=== PATIENT | male | born 1950 | race Caucasian/White ===

== ENCOUNTER 2018-11-07 11:39 | Day surgery (SDC) | payer OTHER, SELFPAY ==
[2018-11-02 09:26] VITALS: BMI 24.0
[2018-11-07] VITALS (7 sets, daily range): BP systolic 133–161; BP diastolic 66–85; PULSE 60–67; RESP 10–20; TEMP 36.2–37.2; O2SAT 97–100; BMI 24.0
[2018-11-07] MEDS: LACTATED RINGERS 1,000 ML 42 ML IV (12:43)
[2018-11-07] MEDS: CEFAZOLIN 2 GM/100 ML FROZ.PIGGY IV (14:01)
--- NOTE | 2018-11-07 14:01 | PM.HP.1 ---
History of Present Illness Date Patient Seen: 11/07/18 Time Patient Seen: 14:06 Chief complaint: [id number] Narrative: 68-year-old gentleman with a right inguinal hernia. He reports today to have it repaired. Since I last saw him, he is had a sleep study and he is now using a CPAP machine at night. He reports he is tolerating it very well. He is accompanied by his today. She will be caring for him after discharge. Patient History Medical History CKD (chronic kidney disease) stage 3, GFR 30-59 ml/min (Acute) Chronic systolic heart failure (Acute) HTN (hypertension) (Acute) Hearing impaired (Acute) Hydronephrosis (Acute) Hyperlipidemia (Acute) LBBB (left bundle branch block) (Acute) KHANH on CPAP (Acute) Pre-diabetes (Acute) Presence of combination internal cardiac defibrillator (ICD) and pacemaker (Acute 02/08/18) Pulmonary hypertension (Acute) Cardiomyopathy (Chronic) Cataract (Resolved) Surgical History Hx of arthroscopic knee surgery (Acute ~07/2000) S/P cystoscopy with ureteral stent placement (Acute) Status post cataract extraction and insertion of intraocular lens of left eye (Acute ~08/2015) Family & Social History Family History: Reviewed 11/07/18 by Suly Barragan MD Social History: household members spouse Tobacco & Substance use: Tobacco type cigarettes Smoking Status Current some day smoker alcohol intake current Meds Home Medications Medication Instructions Recorded Confirmed Type aspirin 81 mg tablet,delayed 81 mg PO DAILY 08/27/18 11/02/18 History release atorvastatin 40 mg tablet 40 mg PO DAILY 08/27/18 11/02/18 History carvedilol 6.25 mg tablet 6.25 mg PO BID tab 08/27/18 11/02/18 History lisinopril 5 mg tablet 5 mg PO DAILY 08/27/18 11/02/18 History spironolactone 25 mg tablet 25 mg PO DAILY 08/27/18 11/02/18 History Allergies Allergy/AdvReac Type Severity Reaction Status Date / Time No Known Drug Allergies Allergy Unverified 11/07/18 12:41 Review of Systems Review of Systems All systems reviewed & are unremarkable except as noted in HPI and below Exam Vital Signs (past 8 hours): - 11/07/18 12:25 Temperature 97.1 F L Pulse Rate 60 Respiratory Rate 15 Blood Pressure 145/85 H Pulse Oximetry 100 Oxygen Delivery Method Room Air Narrative Exam Narrative: Very pleasant 68-year-old gentleman in no obvious distress. HEENT: Normocephalic and atraumatic, pupils equal round reactive to light accommodation with anicteric sclera Lungs: Clear bilaterally Heart: Regular rate and rhythm without murmur rub or gallop Abdomen: Soft, nontender, active bowel sounds. He has a visible and palpable right inguinal hernia that is easily reducible. Spontaneously reduces when in the supine position. No other defects appreciated. Extremities: Warm and well perfused. Assessment & Plan Plan: Assessment/Plan Narrative: Pleasant and remarkably active 68-year-old gentleman with a large right inguinal hernia. We discussed the risks and benefits of repairing the patient expressed a desire to complete the procedure today.
--- NOTE | 2018-11-07 14:09 | P.HP_ITS ---
History of Present Illness Date Patient Seen: 11/07/18 Time Patient Seen: 14:06 Chief complaint: [id number] Narrative: 68-year-old gentleman with a right inguinal hernia. He reports today to have it repaired. Since I last saw him, he is had a sleep study and he is now using a CPAP machine at night. He reports he is tolerating it very well. He is accompanied by his today. She will be caring for him after discharge. Patient History Medical History CKD (chronic kidney disease) stage 3, GFR 30-59 ml/min (Acute) Chronic systolic heart failure (Acute) HTN (hypertension) (Acute) Hearing impaired (Acute) Hydronephrosis (Acute) Hyperlipidemia (Acute) LBBB (left bundle branch block) (Acute) KHANH on CPAP (Acute) Pre-diabetes (Acute) Presence of combination internal cardiac defibrillator (ICD) and pacemaker ( Acute 02/08/18) Pulmonary hypertension (Acute) Cardiomyopathy (Chronic) Cataract (Resolved) Surgical History Hx of arthroscopic knee surgery (Acute ~07/2000) S/P cystoscopy with ureteral stent placement (Acute) Status post cataract extraction and insertion of intraocular lens of left eye ( Acute ~08/2015) Family & Social History Family History: Reviewed 11/07/18 by Suly Barragan MD Social History: household members spouse Tobacco & Substance use: Tobacco type cigarettes Smoking Status Current some day smoker alcohol intake current Meds Home Medications Medication Instructions Recorded Confirmed Type aspirin 81 mg tablet,delayed 81 mg PO DAILY 08/27/18 11/02/18 History release atorvastatin 40 mg tablet 40 mg PO DAILY 08/27/18 11/02/18 History carvedilol 6.25 mg tablet 6.25 mg PO BID tab 08/27/18 11/02/18 History lisinopril 5 mg tablet 5 mg PO DAILY 08/27/18 11/02/18 History spironolactone 25 mg tablet 25 mg PO DAILY 08/27/18 11/02/18 History Allergies Allergy/AdvReac Type Severity Reaction Status Date / Time No Known Drug Allergies Allergy Unverified 11/07/18 12:41 Review of Systems Review of Systems All systems reviewed & are unremarkable except as noted in HPI and below Exam Vital Signs (past 8 hours): - 11/07/18 12:25 Temperature 97.1 F L Pulse Rate 60 Respiratory Rate 15 Blood Pressure 145/85 H Pulse Oximetry 100 Oxygen Delivery Method Room Air Narrative Exam Narrative: Very pleasant 68-year-old gentleman in no obvious distress. HEENT: Normocephalic and atraumatic, pupils equal round reactive to light accommodation with anicteric sclera Lungs: Clear bilaterally Heart: Regular rate and rhythm without murmur rub or gallop Abdomen: Soft, nontender, active bowel sounds. He has a visible and palpable right inguinal hernia that is easily reducible. Spontaneously reduces when in the supine position. No other defects appreciated. Extremities: Warm and well perfused. Assessment & Plan Plan: Assessment/Plan Narrative: Pleasant and remarkably active 68-year-old gentleman with a large right inguinal hernia. We discussed the risks and benefits of repairing the patient expressed a desire to complete the procedure today.
--- NOTE | 2018-11-07 14:20 | SUR.OPER ---
Supine on padded OR bed, head on pillow, arms secured on padded arm boards at <90 degrees abduction, legs uncrossed, safety belt at thigh, tape over blanket over lower legs.
[2018-11-07] MEDS: BUPIVACAINE 0.5% (PF) VIAL 30 ML INJ (14:27)
[2018-11-07] MEDS: LIDOCAINE 1% W/EPI INJ 20 ML INJ (14:28)
[2018-11-07] MEDS: CEFAZOLIN 1 GM VIAL IV (14:37)
--- NOTE | 2018-11-07 14:53 | PM.OP.1 ---
Operative Date/Time/Diagnoses Date of procedure: 11/07/18 Time of procedure: 14:53 Pre-op diagnosis: Right inguinal hernia Post-op diagnosis: same Procedure & Clinicians Procedure: Right inguinal hernia repair Same procedure as scheduled: Yes Indications: Hernia Surgeon: Suly Barragan Anesthesia Type: General (Dr. Clayton) Operative Notes Findings: Large indirect right inguinal hernia Closure Type: primary Implants & Drains: Large Pro Loop mesh implant Estimated Blood Loss (mL): 10 Procedure in detail: After obtaining informed consent the patient was brought to the operating room and placed in the supine position on the operating table. Following successful induction of general endotracheal anesthesia, appropriate padding of all bony prominences, and a placement of appropriate monitors, the left groin is prepped and draped in a standard surgical fashion. A timeout was held per protocol. We began the procedure by infiltrating a mixture of local anesthetics medial to the anterior superior iliac spine on the right. Following this, an incision was fashioned in the right groin superior and lateral to the left pubic tubercle. This area was infiltrated with local anesthetic to create a field block. A skin incision was created here and carried down through the skin and subcutaneous tissue to reveal Bernabe's fascia below. Bernabe's fascia was divided sharply revealing the external oblique aponeurosis below. More local anesthetic was infiltrated in the aponeurosis and it was opened in the direction of its fibers. The spermatic cord and its contents were surrounded and retracted gently using a Migue drain. The hernia sac was identified in the superior medial position and carefully dissected free from the cord structures. This was carefully placed back into the abdominal cavity without injury. A large portion of PROloop mesh was chosen for the repair. The plug was soaked in Ancef solution and deployed into the defect in the internal ring. This was sewn into place with interrupted Vicryl sutures in 2 positions. The overlying mesh layer was sewn to the pubic tubercle with an air knot of Vicryl suture. The lateral leaflets were then carefully placed around the spermatic cord and sewn together with another suture. Tags of the overlying mesh were then tucked under the external oblique aponeurosis. The wound was checked for hemostasis and irrigated with Ancef-containing solution. The edges of the external oblique aponeurosis were approximated and closed with a running Vicryl suture. The wound was irrigated once again and Bernabe's fascia was closed with a running suture. Monocryl sutures were placed in the skin. All sponge, needle, and instrument counts were correct at the conclusion of the case. The patient was allowed to awaken from anesthesia without difficulty and taken to the post anesthesia care unit in good condition. Complications: none Condition: stable Disposition: PACU Plan for aftercare: 1. Discharge to home 2. Follow up with me in 2 weeks
[2018-11-07] MEDS: OXYCODONE/ACETAMINOPHEN 5/325 TABLET 1 TAB PO (15:18)
== END 2018-11-07 16:05 | disposition home or self-care (01) ==
PROVIDERS: Family Provider Internal Medicine; PCP Internal Medicine; Visit Provider Surgery
PROC: (CPT 49505; principal; 2018-11-07 13:15)
DX: K40.90 Unilateral inguinal hernia, without obstruction or gangrene, not specified as recurrent (principal); N18.3 Chronic kidney disease, stage 3 (moderate); I50.22 Chronic systolic (congestive) heart failure; I10 Essential (primary) hypertension; E78.5 Hyperlipidemia, unspecified; I44.7 Left bundle-branch block, unspecified; G47.33 Obstructive sleep apnea (adult) (pediatric); Z95.0 Presence of cardiac pacemaker; F17.210 Nicotine dependence, cigarettes, uncomplicated
CPT/HCPCS: 49505; C1781; J0690; J2250; J2405; J2704; J3010

== ENCOUNTER 2021-05-05 10:59 | Day surgery (SDC) | payer MEDICARE, SELFPAY ==
[2021-05-03 10:46] VITALS: BMI 27.7
[2021-05-05] VITALS (17 sets, daily range): BP systolic 95–134; BP diastolic 56–85; PULSE 60–72; RESP 10–16; TEMP 36.1–36.8; O2SAT 96–100; BMI 27.4
--- NOTE | 2021-05-05 | DI.RAD.S_ITS ---
PROCEDURE: XR LUMBAR SPINE 2-3V INDICATIONS: L4-5 TLIF TECHNIQUE: 2 intraoperative fluoroscopic views of the lumbar spine were acquired. COMPARISON: None. FINDINGS: Intraoperative fluoroscopic images of lower lumbar spine shows transpedicular fusion and intervertebral spacer placement at L4-5 level. IMPRESSION: Fluoro guidance was provided intraoperatively for posterior fusion of L4 and L5 vertebral bodies. Dictated by: Zeeshan Palacios M.D. on 05/05/2021 at 15:16 Approved by: Zeeshan Palacios M.D. on 05/05/2021 at 15:27
--- NOTE | 2021-05-05 12:07 | PM.PREOP ---
Pre-operative Note COVID-19 COVID-19 status: Negative Result date/Date tested (Pos, Neg/Pending): 05/03/21 Interval Note History & Physical reviewed/Exam performed by Physician: Yes Changes to H&P: No
[2021-05-05] MEDS: LACTATED RINGERS 1,000 ML 42 ML IV (12:14)
[2021-05-05] MEDS: CEFAZOLIN 1 GM VIAL 2 GM IV ×2 (12:55→20:25)
--- NOTE | 2021-05-05 13:22 | SUR.OPER ---
Prone on spine table, head in foam head support, padded chest and pelvic supports, gel pad at knees, lower legs supported by pillows; nipples, genitalia and toes free of pressure, arms secured on foam padded arm boards at <90 degrees abduction. Tape over blanket at thigh secured to table.
[2021-05-05] MEDS: BUPIVACAINE LIPOSOME 266 MG/20 ML VIAL INJ (13:34)
[2021-05-05] MEDS: BUPIVACAINE 0.25% (PF) VIAL 30 ML INJ (13:35)
--- NOTE | 2021-05-05 15:14 | P.OP_ITS ---
Operative Date/Time/Diagnoses Date of procedure: 05/05/21 Time of procedure: 12:14 Pre-op diagnosis: 1. L4-5 spondylolisthesis 2. L4-5 spinal stenosis with radiculopathy Post-op diagnosis: same Procedure & Clinicians Procedure: 1. L4-5 Postero-lateral and posterior interbody fusion 2. L4-5 interbody cage placement. 3. L4-5 decompressive laminectomy with bilateral facetecomies 4. L4-5 Posterior non-segmental instrumentation 5. [place] of bone marrow from iliac crest 6. Utilization of microsurgical technique and operating microscope Same procedure as scheduled: Yes Indications: Patient has been having chronic back pain and worsening lumbar radiculopathy. Patient failed multiple conservative management with worsening pain weakness and numbness in her lower extremity. Patient has been having difficulty performing activity of daily living. After discussing risks benefits of treatment options, patient elected proceed with surgery. Surgeon: Reyna Mojica Police Patrol Officer: Ko Subramanian Click Yes if Unassisted: No Anesthesia Type: General Operative Notes Closure Type: primary Specimen(s): none sent Prosthetic devices, grafts, tissues, transplants, or devices: Globus revolve screws, Rise cage Estimated Blood Loss (mL): 50 Blood products transfused: none Procedure in detail: Patient was seen in the preoperative area. Risks and benefits of the surgery was discussed with the patient. Informed consent was obtained from the patient and placed in the chart. Surgical site was marked. Patient was taken to the operative room. General anesthesia was administered. Prophylactic antibiotic was given to the patient less than 30 min before the incision was made. Patient was placed into a prone position on the Tylor table. Patient's back was then prepped and draped in the sterile fashion. Time- out was performed at this time. Using AP and lateral C-arm imaging the interval between L4-5 was identified and marked on patient's back. A 2 inch incision 2 in from midline was made on the left side first. The fascia was incised in line with skin incision. Globus MARS retractors was placed inside the incision and docked onto the L4 lamina. Using microsurgical technique and operating microscope, a L4 laminectomy and L4-5 face tectomy was performed using a Kerrison rongeur. The disc space at L4-5 was identified. And a total diskectomy was performed at L4-5 level. The endplates were decorticated using a rasp and shaver. The total diskectomy and decortication was performed at L4-5 level in order to to accomplish a L4-5 fusion. The local bone from the laminectomy and facetectomy was saved for local bone grafting. After the total diskectomy and decortication was completed, Trifecta bone graft material was combined with local bone that was harvested earlier. At this time, a separate skin is incision was made over the iliac crest. A Jamshidi needle was inserted into the iliac crest through a separate skin incision. 5 cc of bone marrow aspiration was obtained through the separate skin incision using a Jamshidi needle from the iliac crest. The bone marrow aspiration was combined with local bone and the Trifecta bone grafting material. The bone grafting material was placed into the L4-5 interbody space along with a expandable cage. The cage was expanded to its maximum height using the torque limiting screwdriver. At this time a mirror image incision was made on the right side. The fascia was incised in line with the skin incision. Globus MARS retractor was inserted and docked onto the L4-5 posterolateral gutter. Using the power drill, posterior- lateral decortication was performed at L4-5 level until bleeding cortical bone was identified. The remaining bone grafting material was placed into the L4-5 posterior lateral gutter he order to accomplish posterolateral fusion at the L4- 5 level. Using the double C-arm technique, pedicle screws were placed into the L4-5 pedicles bilaterally. This was done by placing the Jamshidi needle into the pedicles, then placing the guidewires over the Jamshidi needle, and finally placing the cannulated screws over the guidewires bilaterally. After the pedicle screws were placed, 2 titanium rods was locked into the heads of the pedicle screws using locking caps and torque limiting screwdriver. After all the hardware was placed, and confirmed with AP and lateral C-arm imaging, the wound was then irrigated with sterile normal saline and packed with Ray-Brian gauze for 3 min to accomplish hemostasis. After the gauze was removed the deep fascia was closed with #1 Vicryl suture. The subcutaneous layer was closed with 2-0 Vicryl. The skin was closed with skin micheline. Patient tolerated the procedure well. There were no complications. Complications: none Post-operative Condition: stable Disposition: PACU Plan for aftercare: Admit to inpatient hospital
--- NOTE | 2021-05-05 15:25 | SUR.PHASEI ---
At 1520 Timur ([phone]) with [employer] called to address pt's implanted ICD/pacemaker. Timur states will see pt in PACU.
[2021-05-05] MEDS: fentaNYL 100 MCG/2 ML INJ IV ×2 (15:33→16:14)
--- NOTE | 2021-05-05 15:37 | SUR.PHASEI ---
[facility] Rep Ding at [facility]. Performed necessary intervention.
[2021-05-05] MEDS: HYDROMORPHONE 2 MG INJ IV ×3 (15:44→16:32)
[2021-05-05] MEDS: OXYCODONE/ACETAMINOPHEN 5/325 TABLET 1 TAB PO (16:22)
[2021-05-05] MEDS: SODIUM CHLORIDE 0.9% 1,000 ML 100 ML IV (18:02)
[2021-05-05] MEDS: DOCUSATE 100 MG CAPSULE PO (20:25)
[2021-05-05] MEDS: SENNOSIDES 8.6 MG TABLET 17.2 MG PO (20:25)
[2021-05-05] MEDS: carvediloL 3.125 MG TABLET 6.25 MG PO (20:25)
--- NOTE | 2021-05-05 21:38 | PC.NURSE ---
A&Ox4. 97%RA. pt ate his dinner. pt stood up at his bedside and voided. dressing was peeling off, reinforced it with coversite.
[2021-05-06] VITALS: BP 102/68; PULSE 61; RESP 16; TEMP 36.8; O2SAT 96
[2021-05-06] MEDS: HYDROMORPHONE 0.5 MG INJ IV (01:17)
[2021-05-06] MEDS: CEFAZOLIN 1 GM VIAL 2 GM IV (04:23)
[2021-05-06 05:00] VITALS: BP 108/62; PULSE 60; RESP 16; TEMP 36.7; O2SAT 99
[2021-05-06 07:23] VITALS: BP 109/73; PULSE 64; RESP 17; TEMP 36.6; O2SAT 98
--- NOTE | 2021-05-06 08:00 | P.PN_ITS ---
Subjective Subjective Date Patient Seen: 05/06/21 Time Patient Seen: 08:00 Interval history: Patient states he is doing well overall and is in mild discomfort at rest. At this time he rates his pain a 3/10 in intensity. Patient denies fever, chills, nausea, chest pain, shortness of breath, or urinary retention. Patient reports good sensation throughout the bilateral lower extremities. Patient notes that he feels his condition has improved since of procedure. Patient explains that the numbness that he had experienced in his left thigh has decreased since having the surgery. Exam Vital Signs (past 8 hours): - 05/06/21 05:00 Temperature 98.1 F Pulse Rate 60 Respiratory Rate 16 Blood Pressure 108/62 Pulse Oximetry 99 Oxygen Delivery Method Room Air Oxygen Flow Rate 0 Narrative Exam Narrative: 70-year-old male postop day 1. Patient is resting comfortably in bed, is in no acute distress, and is alert and oriented x3. Skin is warm and dry, and the skin surrounding the incision site is free of erythema, warmth, induration, or discharge. Dressing over the incision site is clean, dry, and intact. Good sensation appreciated throughout the bilateral lower extremities to light touch. Hip flexion performed bilaterally without difficulty or discomfort. Ankle dorsiflexion, plantar flexion, eversion, inversion performed bilaterally without difficulty or discomfort. Calves are soft and nontender, negative Homans sign. DP pulses palpated bilaterally. No other signs of DVT appreciated. Const General: cooperative, healthy appearing and comfortable Resp Effort & Inspection: normal respiratory effort and able to speak in complete sentences Skin General: no rashes or lesions noted [facility] Medical History Bradycardia Cardiomyopathy Cataract Chronic systolic heart failure CKD (chronic kidney disease) stage 3, GFR 30-59 ml/min Hearing impaired HTN (hypertension) Hydronephrosis Hyperlipidemia LBBB (left bundle branch block) KHANH on CPAP Pre-diabetes Presence of combination internal cardiac defibrillator (ICD) and pacemaker (02/08/18) Pulmonary hypertension Surgical History Hx of arthroscopic knee surgery (~07/2000) Hx of right inguinal hernia repair (11/07/18) S/P cystoscopy with ureteral stent placement Status post cataract extraction and insertion of intraocular lens of left eye (~08/2015) Family History Father Heart disease Brother Cancer Social History marital status: household members: spouse occupational status: employed Smoking Status: Never smoker alcohol intake: current substance use type: does not use Assessment & Plan Post-op Postoperative Procedures: Procedures Operation Date: 05/05/21 12:45 Actual Procedures Side Surgeon p L4-5 TLIF Reyna Mojica MD Postoperative day: 1 Postoperative status: doing well Postoperative plan: ambulate Postoperative plan narrative: Patient is to continue working on ambulation with the assistance of a front wheeled walker with physical therapy. Current pain management regimen is to be continued as it is adequately controlled the patient's pain level at this time. Patient is to remain weight-bearing as tolerated. Patient is to avoid bending, twisting, or lifting in excess of 10 lb. Pending successful work with PT patient likely to be discharged home either today or tomorrow. Time Spent With Patient Time with patient: less than 15 minutes
--- NOTE | 2021-05-06 08:50 | P.DS_ITS ---
History of Present Illness History of Present Illness Date Patient Seen: 05/06/21 Time Patient Seen: 08:50 Chief complaint: *OPB* Narrative: Refer to previous HPI. Discharge Providers Provider Discharge Date: 05/06/21 Primary care physician: Nelia Rangel MD Consults: 05/05/21 12:11 Consult to Respiratory Therapy Evaluate & Treat Comment: Physician Instructions: Evaluate and treat 05/05/21 17:04 Consult to Occupational Therapy Evaluate & Treat Comment: Physician Instructions: Evaluate and treat Consult to Physical Therapy Evaluate & Treat Comment: Physician Instructions: Evaluate and Treat Discharge provider: Ko Subramanian PA-C Summary Hospital Course Discharge Diagnosis: L4-5 spondylolisthesis L4-5 spinal stenosis with radiculopathy Status post L4-5 Postero-lateral and posterior interbody fusion, L4-5 interbody cage placement, L4-5 decompressive laminectomy with bilateral facetecomies, L4-5 Posterior non-segmental instrumentation, [place] of bone marrow from iliac crest, Utilization of microsurgical technique and operating microscope Hospital Course: Patient was admitted to the hospital following the above-listed procedures for the above-listed diagnosis. Following the procedure the patient has been convalescing appropriately in his pain has been managed with his current pain management regimen. Patient has successfully worked on ambulation with the assistance of a front wheeled walker. Dressing over the incision site has remained intact following the procedure and has been changed as needed as becomes soiled. Patient has avoid bending, twisting, or lifting in excess of 10 lb. No symptoms of fever, chills, nausea, chest pain, shortness of breath, or urinary retention reported. Status at Discharge Cognitive/behavioral status at discharge: oriented Functional status at discharge: uses cane/walker Overall status at discharge: patient is progressing back to baseline Exam Vital Signs (past 8 hours): - 05/06/21 05:00 Temperature 98.1 F Pulse Rate 60 Respiratory Rate 16 Blood Pressure 108/62 Pulse Oximetry 99 Oxygen Delivery Method Room Air Oxygen Flow Rate 0 Narrative Exam Narrative: 70-year-old male postop day 1. Patient is resting comfortably in bed, is in no acute distress, and is alert and oriented x3. Skin is warm and dry, and the skin surrounding the incision site is free of erythema, warmth, induration, or discharge. Dressing over the incision site is clean, dry, and intact. Good sensation appreciated throughout the bilateral lower extremities to light touch. Hip flexion performed bilaterally without difficulty or discomfort. Ankle dorsiflexion, plantar flexion, eversion, inversion performed bilaterally without difficulty or discomfort. Calves are soft and nontender, negative Homans sign. DP pulses palpated bilaterally. No other signs of DVT appreciated. Const General: cooperative, healthy appearing and comfortable Resp Effort & Inspection: normal respiratory effort and able to speak in complete sentences Skin General: no rashes or lesions noted [facility] Medical History Bradycardia Cardiomyopathy Cataract Chronic systolic heart failure CKD (chronic kidney disease) stage 3, GFR 30-59 ml/min Hearing impaired HTN (hypertension) Hydronephrosis Hyperlipidemia LBBB (left bundle branch block) KHANH on CPAP Pre-diabetes Presence of combination internal cardiac defibrillator (ICD) and pacemaker (02/08/18) Pulmonary hypertension Surgical History Hx of arthroscopic knee surgery (~07/2000) Hx of right inguinal hernia repair (11/07/18) S/P cystoscopy with ureteral stent placement Status post cataract extraction and insertion of intraocular lens of left eye (~08/2015) Family History Father Heart disease Brother Cancer Social History marital status: household members: spouse occupational status: employed Smoking Status: Never smoker alcohol intake: current substance use type: does not use Discharge Assessment & Plan Assessment and Plan Assessment: Patient is doing well and is stable. Plan of Treatment: 1st postoperative visit is scheduled for 2 weeks following discharge from hospital. Current pain management regimen is to be continued as it is adequately controlled the patient's pain level. Patient is to remain weight- bearing as tolerated with the assistance of a front wheeled walker. Avoid bending, twisting, or lifting in excess of 10 lb. Dressing over the incision site is to remain clean, dry, and intact. Dressing can be changed as needed if it becomes damaged or soiled. Avoid placing topical ointments over the incision site or soaking the incision site. Patient is to contact clinic with any concerns or questions. Any signs of increased redness, swelling, warmth, pain, or discharge from around the incision site should be reported to the clinic. Discharge Plan Discharge Plan Patient Disposition: Home Provider Discharge Comment: Patient cleared for discharge pending PT clearance. Discharge orders & Medications Discharge Orders: Discharge (Order); Ordered 05/06/21 Ordered By: Ko Subramanian Prescriptions: New acetaminophen 325 mg Tablet 650 mg PO Q6HR PRN (Reason: Pain, Mild (1-3)) Qty: 90 RF: 0 oxycodone 5 mg Tablet 10 mg PO Q3HR PRN (Reason: Pain, Severe (7-10)) Qty: 42 RF: 0 Continued atorvastatin 40 mg tablet 40 mg PO DAILY RF: 0 carvedilol 6.25 mg tablet 6.25 mg PO BID RF: 0 aspirin [Adult Aspirin Regimen] 81 mg tablet,delayed release (DR/EC) 81 mg PO DAILY RF: 0 spironolactone 25 mg tablet 25 mg PO DAILY RF: 0 lisinopril 5 mg tablet 5 mg PO DAILY RF: 0 Follow up/Referrals: Nelia Rangel MD [Primary Care Provider] - Diet/Activity/Treatments Diet: Regular Activity: Weight-bearing as tolerated with the assistance of a front wheeled walker. Avoid bending, twisting, or lifting in excess of 10 lb. Skin/Wound/Dressing Care Report to your healthcare provider any signs of infection, such as:: chills, fever, night sweats, increased pain, unusual drainage and unusual redness Dressing: Dressing over the incision site is to remain clean, dry, and intact. Dressing can be changed as needed if it becomes damaged or soiled. Other wound treatment: Avoid placing topical ointments over the incision site. Avoid soaking the incision site. Visit Report/Discharge Packet Instructions: DI for Constipation, How to Prevent Falls, DI for Transforaminal Lumbar Interbody Fusion Stand Alone Forms: Surgery Discharge Discharge Data Primary Care Provider: Nelia Rangel Attending Provider: Reyna Mojica
--- NOTE | 2021-05-06 09:19 | PT.IIE ---
Current Diagnoses Spondylolisthesis, lumbar region (05/05/21) Spinal stenosis, lumbar region with neurogenic claudication (05/05/21) Surgery Performed Operation Date: 05/05/21 12:45 Actual Procedures p L4-5 TLIF - Reyna Mojica MD Surgical History (Last Reviewed 05/06/21 @ 08:53 by Ko Subramanian PA-C) Hx of arthroscopic knee surgery (~07/2000) Hx of right inguinal hernia repair (11/07/18) S/P cystoscopy with ureteral stent placement Status post cataract extraction and insertion of intraocular lens of left eye (~08/2015) Medical History (Last Reviewed 05/06/21 @ 08:53 by Ko Subramanian PA-C) Bradycardia Cardiomyopathy Cataract Chronic systolic heart failure CKD (chronic kidney disease) stage 3, GFR 30-59 ml/min Hearing impaired HTN (hypertension) Hydronephrosis Hyperlipidemia LBBB (left bundle branch block) KHANH on CPAP Pre-diabetes Presence of combination internal cardiac defibrillator (ICD) and pacemaker (02/08/18) Pulmonary hypertension Physical Therapy Inpatient Evaluation/Re-Eval M1 PT/OT-IP Prior Functional Status Start: 05/06/21 08:20 Freq: NEEDED Status: Active Protocol: Document 05/06/21 09:19 DLM (Rec: 05/06/21 09:46 DLM [id number]) Medical Review Prior Functional Status Medical History Reviewed Yes Diet/Fluid Consistency Regular Communication WNL Mobility and Gait 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 2 with rail Home Equipment Straight Cane Employment Status Retired M2 PT-IP Current Condition Start: 05/06/21 08:20 Freq: NEEDED Status: Active Protocol: Document 05/06/21 09:19 DLM (Rec: 05/06/21 09:46 DLM [id number]) Physical Therapy Current Condition Current Condition Evaluation Date 05/06/21 Treatment Diagnosis L4-5 TLIF, impaired mobility/ gait Onset Date 05/05/21 Precautions Lumbar Precautions Log Roll,No Twisting,Limit Bending,Lifting Restriction of 10 lbs,Gait Belt above Incisional Area M3 PT-IP Subjective Start: 05/06/21 08:20 Freq: NEEDED Status: Active Protocol: Document 05/06/21 09:19 DLM (Rec: 05/06/21 09:46 COUNT INCLUDES THE [facility] [id number]) Subjective Physical Therapy Visit Type Type Initial Evaluation Visit Start Time 08:50 Visit Stop Time 09:19 Total Visit Minutes 29 Number of FERRY OPERATOR Visits 0 Physical Therapy Visit Comments Patient Comments He did not sleep well last night, up multiple times to urinate. He reports he gets light-headed when stands up at home that he manages by taking his time before moving Patient Goals go home today Therapy Pain Assessment Pain Present Pain Present Pain Reported Location back Intensity 4 Scale Used Numeric (0 - 10) Description Aching,With Movement Pain Management Techniques Re-positioning M4 PT-IP Mobility and Gait Start: 05/06/21 08:20 Freq: NEEDED Status: Active Protocol: Document 05/06/21 09:19 DLM (Rec: 05/06/21 09:46 COUNT INCLUDES THE [facility] [id number]) PT-Bed Mobility Assessment Rolling Type of Rolling Log Rolling,Roll to Left Level of Assist Independent Supine to Sit Supine to Sit Independent Sit to Supine Sit to Supine Independent Scooting Scooting to Edge of Bed Independent PT-Transfer Assessment Sit to and From Stand Sit to and from Stand Independent,Use of Upper Extremities Equipment Transfer Assistive Device Gait Belt Transfers Transfer Destination Chair Transfer Technique Stand Step Pivot Transfer Ability Level of Assist Standby Assistance Comments Mobility Comments Pt left up in recliner for breakfast with call light close and instructions to have nursing assist when up Gait Assessment Gait Gait Assistance Required: Standby Assistance Distance (Feet) 140 Assistive Devices Assistive Device Gait Belt Factors Limiting Gait Function Factors Limiting Gait Function Limited Range of Motion,Pain Comments Gait Comments he describes mild light- headedness with initial sitting up and standing that resolves with short rest breaks. He demonstrates a safe gait pattern on level surfaces without a device. He has a cane at home to use in the community. Pt does not want to use a FWW at home. He describes feet soreness if he does a lot of walking without his shoes on his feet PT-Balance Assessment Sitting Balance and Reactions Static Sitting Balance Ability Good Dynamic Sitting Balance Ability Good Standing Balance and Reactions Static Standing Balance Ability Good Dynamic Standing Balance Ability Good Device Used none M5 PT-IP Objective Assessments Start: 05/06/21 08:20 Freq: NEEDED Status: Active Protocol: Document 05/06/21 09:19 DLM (Rec: 05/06/21 09:46 COUNT INCLUDES THE [facility] [id number]) Orientation Orientation/Cognition Level of Alertness Alert Orientation Name,Age,Birthday,Month,Date, Year,Day of Week,Place, Situation Language Function Ability No Deficits Noted Safety Awareness Understands Safety Issues Memory Description No Deficits Noted Comments flat affect Gross Range of Motion Upper Extremity ROM Assessment Within Functional Limits Lower Extremity ROM Assessment Within Functional Limits Strength Upper Extremity Strength Assessment Within Functional Limits Lower Extremity Strength Assessment Within Functional Limits Comments Strength Comments trunk AROM limited by spine precautions post-op Coordination Assessment Gross Coordination Gross Coordination WNL Sensation Assessment Sensation Gross Sensation WNL Comments Sensation Comments intermittent numbness left thigh that is better since surgery but not fully resolved Muscle Tone Muscle Tone WNL Yes M6 PT-IP Treatment Start: 05/06/21 08:20 Freq: NEEDED Status: Active Protocol: Document 05/06/21 09:19 DL (Rec: 05/06/21 09:46 COUNT INCLUDES THE [facility] [id number]) Physical Therapy Treatment Education Education Provided Precautions,Post-Op Packet, Safety Other Treatments Other Treatment Performed pt educated to walk for exercise at home, his is not present this visit M7 PT-IP Assessment and Plan Start: 05/06/21 08:20 Freq: NEEDED Status: Active Protocol: Document 05/06/21 09:19 DLM (Rec: 05/06/21 09:46 COUNT INCLUDES THE [facility] [id number]) PT Summary Assessment and Plan Potential Rehabilitation Potential Good Status of Condition at Evaluation Evolving Summary Impairments Pain,ROM,Bed Mobility, Transfers,Gait,Activity Tolerance Assessment Summary Mr Salter is alert and eager to start physical therapy. He verbalizes his spine precautions and reports he was using them before surgery. He tolerated gait in the [place] without a device. Gait trials performed with and without the FWW and pt feels safe without the device. He does not have a fWW at home and does not want one. He appears safe to discharge home with assist from his . His pain appears well controlled. He demonstrates safe and independent gait and mobility. Recommend he use a cane for gait in the community to decrease his fall risks post-op. Goals Bed Mobility Goal Independent Transfer Goal Independent Gait Goal Independent Gait Distance 150 feet Frequency of Treatment Frequency Of Treatment Discharge Treatment Plan Other Recommendations and Next Treatment training completed this visit Focus Recommendations To Nursing Amount of Assist Needed Standby Assistance Discharge Recommendations PT Discharge Recommendations Home with Assistance Other Discharge Recommendations and adult Son can assist as needed
[2021-05-06] MEDS: SPIRONOLACTONE 25 MG TABLET PO (09:35)
[2021-05-06] MEDS: DOCUSATE 100 MG CAPSULE PO (09:35)
[2021-05-06] MEDS: OXYCODONE IR 5 MG TABLET 10 MG PO (09:36)
--- NOTE | 2021-05-06 10:26 | OT.IP.EVAL ---
Current Diagnoses Spondylolisthesis, lumbar region (05/05/21) Spinal stenosis, lumbar region with neurogenic claudication (05/05/21) Surgery Performed Operation Date: 05/05/21 12:45 Actual Procedures p L4-5 TLIF - Reyna Mojica MD Past Medical History (Last Reviewed 05/06/21 @ 08:53 by Ko Subramanian PA-C) Bradycardia Cardiomyopathy Cataract Chronic systolic heart failure CKD (chronic kidney disease) stage 3, GFR 30-59 ml/min Hearing impaired HTN (hypertension) Hydronephrosis Hyperlipidemia LBBB (left bundle branch block) KHANH on CPAP Pre-diabetes Presence of combination internal cardiac defibrillator (ICD) and pacemaker (02/08/18) Pulmonary hypertension Surgical History (Last Reviewed 05/06/21 @ 08:53 by Ko Subramanian PA-C) Hx of arthroscopic knee surgery (~07/2000) Hx of right inguinal hernia repair (11/07/18) S/P cystoscopy with ureteral stent placement Status post cataract extraction and insertion of intraocular lens of left eye (~08/2015) Occupational Therapy Inpatient Evaluation/Re-Eval M1 PT/OT-IP Prior Functional Status Start: 05/06/21 08:20 Freq: NEEDED Status: Active Protocol: Document 05/06/21 10:22 [facility]3] (Rec: 05/06/21 10:43 [facility]3] [id number]) Medical Review Prior Functional Status Medical History Reviewed Yes Diet/Fluid Consistency Regular Communication WNL Mobility and Gait 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 2 with rail Home Environment High Toilet,Tub/Shower Home Equipment Straight Cane Employment Status Retired Additional Social History Comment Pt states has suction grab bars for the shower. Pt states if needed will get a walker. Pt states prior in the mornings that pt gets whoozy and has to sit for a little bit before standing. 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 M2 OT-IP Current Condition Start: 05/06/21 10:21 Freq: Status: Active Protocol: Document 05/06/21 10:22 [facility]3] (Rec: 05/06/21 10:43 [facility]3] [id number]) Occupational Therapy Current Condition Current Condition Evaluation Date 05/06/21 Treatment Diagnosis S/p L4-5 TLIF, decreased mobility Post Operative Precautions Lumbar Precautions Log Roll,No Twisting,Limit Bending,Lifting Restriction of 10 lbs,Gait Belt above Incisional Area M3 OT- IP Subjective and Pain Start: 05/06/21 10:21 Freq: Status: Active Protocol: Document 05/06/21 10:22 [facility]3] (Rec: 05/06/21 10:43 [facility]3] [id number]) OT- Subjective Occupational Therapy Visit Type Type Initial Evaluation Visit Start Time 09:50 Visit Stop Time 10:26 Total Visit Minutes 36 Occupational Therapy Visit Comments Patient Comments Pt agreed to get up for OT eval. Patient/Caregiver Goals TO go home. OT Pain Assessment Pain When Pain Assessed At Rest Pain Present Pain Present Pain Reported Location back Intensity 3 M4 OT- IP ADL's Start: 05/06/21 10:21 Freq: Status: Active Protocol: Document 05/06/21 10:22 [facility]3] (Rec: 05/06/21 10:43 [facility]3] [id number]) OT JRI-Moeb-Fsirann Comments OT Self-Feeding Comments NOt at meal time. OT ADL-Grooming General Evaluation Grooming Ability Independent OT ADL-Oral Care General Eval Oral Care Ability Standby Assistance Comments Oral Care Comments Initial vc to spit into a cup to best follow his back precautions. OT ADL-Dressing General Eval Lower Body Dressing Ability Maximum Assistance Comments OT Dressing Comments Educated on use of quilt maker and sock aid. Pt's toes flex therefore hard plastic sock aid used does not work well for the pt , Pt educated to have his assist or order a different socks aid if needed. Pt issued quilt maker, long handled sponge and shoe horn. OT ADL-Toileting General Evaluation Toileting Ability Standby Assistance Comments OT Toileting Comments VC to best follow his back precautions to lean to the side and wipe from behind versus prior pt reaches from the front. OT ADL-Bathing Comments OT Bathing Comments Pt not wanting to shower here, nursing notified and said that she will change out his dressing later. Pt states normally stands to shower. Pt states he holds the suction cup grab bar and lifts his foot up in order to wash his feet. Suggested for pt to have his there to assist and use of long handle sponge for safety. M5 OT- IP IADL's Start: 05/06/21 10:21 Freq: Status: Active Protocol: Document 05/06/21 10:22 [facility]3] (Rec: 05/06/21 10:43 [facility]3] [id number]) OT-Instrumental Activities of Daily Living Home Safety Awareness Ability to Problem Solve Emergency Able to Problem Solve Situations Medication Management Medication Management No Deficits Identified Money Management Money Management Comments Pt states his pays the bills. Meal Preparation Meal Preparation Comments Pt's and son will do all IADl needs for pt. Inspector Circuitry Negative Inspector Circuitry Negative Comments Pt's and son will do all IADl needs for pt. M6 OT- IP Functional Cognition Start: 05/06/21 10:21 Freq: Status: Active Protocol: Document 05/06/21 10:22 [facility]3] (Rec: 05/06/21 10:43 [facility]3] [id number]) Cognitive Factors Limiting Selfcare Function Cognitive Ability Level of Alertness Alert Patient Orientation Name,Age,Birthday,Month,Date, Year,Day of Week,Place, Situation Attention Span Ability Capable of Focused Attention, Capable of Sustained Attention Ability to Follow Commands Able to Follow Multi-Step Commands Memory Description No Deficits Noted Safety Awareness Decreased Ability to Apply Precautions Problem Solving Ability No deficits Noted Cognitive Comments Cognitive Assessment Comments Pt needing reminders to incorporate back precautions for ADl's and especially bed mobility needs. Pt's pillow fell on the floor and pt attempted to do golfer's stretch in order to pick it up and then realizing will not be doing it at home at this time. Encouraged pt to be sure to ask his and son for assist as needed. OT- Vision and Hearing OT- Hearing Assessment OT- Hearing Assessment Use of Hearing Aids OT- Vision Assessment Visual Acuity Glasses All The Time M7 OT- IP Mobility and Balance Start: 05/06/21 10:21 Freq: Status: Active Protocol: Document 05/06/21 10:22 [facility]3] (Rec: 05/06/21 10:43 [facility]3] [id number]) OT- Bed Mobility Assessment Rolling Type of Rolling Roll to Right Level of Assistance Standby Assistance Supine to Sit Supine to Sit Assist Standby Assistance Sit to Supine Sit to Supine Assist Standby Assistance OT-Transfer Assessment Sit to and From Stand Sit to and from Stand Standby Assistance Transfers Transfer Ability Standby Assistance,Contact Guard Assistance Technique Transfer Destination Bed,Chair,Toilet Transfer Technique Stand Step Pivot Devices Transfer Assistive Devices None,Straight Cane Comments Mobility Comments Pt had slight lean when up on his feet and needing CGA/close SBA. Pt encouraged to use FWW for longer distances, but pt wanting to use a SPC. Trial of SPC and pt much steadier. Also encouraged pt to wear shoes would also be safer. OT- Gait Assessment Comments Gait Ability Comments SBA with SPC. OT- Balance Assessment Sitting Balance and Reactions Static Sitting Balance Ability Normal Dynamic Sitting Balance Ability Good Standing Balance and Reactions Static Standing Balance Ability Good Dynamic Standing Balance Ability Fair M8 OT- IP Objective Assessments Start: 05/06/21 10:21 Freq: Status: Active Protocol: Document 05/06/21 10:22 [facility]3] (Rec: 05/06/21 10:43 [facility]3] [id number]) OT Gross Range of Motion Upper Extremity Range of Motion Assessment Within Functional Limits OT Strength Upper Extremity Strength Assessment Within Functional Limits OT- Coordination Assessment Comments Coordination Comments Arthritic change in hands. M9 OT- IP Assessment and Plan Start: 05/06/21 10:21 Freq: Status: Active Protocol: Document 05/06/21 10:22 [facility]3] (Rec: 05/06/21 10:43 [facility]3] [id number]) OT Summary Assessment and Plan Potential Rehabilitation Potential Good Analytic Complexity at Evaluation Low Summary OT Impairments Functional Mobility,Dressing, Bathing Assessment Summary Pt low complexity and main barrier are at time not remembering to incorporate his back precautions for ADL and bed mobility needs. Pt has a supportive and son to assist pt at home. Goals Grooming Goal Independent Dressing Goal Independent Toileting Goal Independent Bathing Goal Independent Toilet Transfer Goal Independent Shower Transfer Goal Independent Patient/Caregiver Education Goal Demonstrate Post-Op Precautions Days to Meet Goals 2 Frequency of Treatment Frequency Of Treatment Twice a Day Treatment Plan OT Treatment Plan ADL Training,Functional Mobility,Patient/Family Education,Discharge Planning Other Treatment Recommendations and Next Shower if still here Treatment Focus Discharge Recommendations OT Discharge Recommendations Home with Assistance Home Equipment Needs FWW Transportation Needs at Discharge Private Vehicle
--- NOTE | 2021-05-06 11:24 | OT.IPNOTE ---
Able to speak to pt's about safety concerns for the pt . states to look at getting the FWW and be sure that pt is incorporating all his back precautions for his needs. NO charge.
--- NOTE | 2021-05-06 11:41 | CM.DPNOTE ---
DCP: Case received, EMR reviewed and met with patient briefly while he ate breakfast. Pt. maral man, A&OX4 who is S/P lumbar surgery. Pt reports having walked successfully with PT and met with BISI Peace who assessed him and told him he was ready for discharge. I introduced myself and my role and discussed his thoughts/feelings about discharge. He is fully independant at baseline. Lives with his and extended family in [place]. A lot of family support. Is acquiring a cane for assistance ambulating but doesn't feel he has any additional needs. PT gave him a list of area places where he can acquire a FWW, but he doesn't feel one is necessary at this time. He and will evaluate further when he gets home. He typically walks a mile daily with his and his goal is to resume that when he heals. Denies any further needs and declines my offer for further assistance. is now at for caregiver training and to drive patient home.
--- NOTE | 2021-05-06 14:27 | PC.NURSE ---
Discharge: Feels ready to d/c to home. Po pain meds effective. Tolerates diet w/out problems. Vds w/out diff. Dressing changed to low back to a coversite. Incision stapled, no redness or drainage. Wound edges intact. Worked w/PT and received their instructions. Seen by PA and received his instructions. D/c packet reviewed with patient. Given rx. Questions answered. Pt d/c home via auto w/spouse.
== END 2021-05-06 12:30 | disposition home or self-care (01) ==
LOC: OR 11:06 → AC 11:07
PROVIDERS: PCP Internal Medicine; Referring Provider Orthopaedic Surgery Orthopaedic Surgery of the Spine; Visit Provider Orthopaedic Surgery Orthopaedic Surgery of the Spine
PROC: (CPT 22633; principal; 2021-05-05 12:45)
DX: M48.062 Spinal stenosis, lumbar region with neurogenic claudication (principal); M54.16 Radiculopathy, lumbar region; M43.16 Spondylolisthesis, lumbar region; I10 Essential (primary) hypertension; E78.5 Hyperlipidemia, unspecified; Z95.0 Presence of cardiac pacemaker
CPT/HCPCS: 22633; 22840; 22853; 20939; 63047; 72100; 76000; 97162; 97165; 97530; 97535; C1776; C9290; J0690; J1170; J2250; J2405; J2704; J3010